=== PATIENT | female | born 1950 | race Caucasian/White ===

== ENCOUNTER 2018-12-18 06:31 | Emergency (ER) | payer MEDICARE, OTHER ==
[2018-12-18] MEDS ORDERED: Aspirin Chewable 81 MG TAB ONE (07:17)
[2018-12-18] MEDS ORDERED: Nitroglycerin 0.4 MG TAB 1 EACH ONE (07:17)
[2018-12-18] MEDS ORDERED: Heparin 25,000 units/D5W 500 ML ONE (07:22)
[2018-12-18] MEDS ORDERED: Heparin 5,000 UNITS/ML VIAL ONE (07:22)
[2018-12-18 07:36] LABS: #Lymphocytes 0.9 thou/uL (1.20-3.40); #Monocytes 0.5 thou/uL (0.11-0.59); #Neutrophils 6.8 thou/uL (1.40-6.50); %Basophils 0.6 % (0.0-1.0); %Eosinophils 0.3 % (0.0-10.0); %Lymphocytes 11.3 % (21.0-51.0); %Monocytes 5.5 % (0.0-10.0); %Neutrophils 82.4 % (42.0-75.0); Hemoglobin 16.5 g/dL (12.0-16.0); Mean Corpuscular HGB CONC 32.3 g/dL (32.0-36.0); Mean Corpuscular Hemoglobin 27.5 pg (27.0-31.0); Mean Corpuscular Volume 85.3 fL (78.0-98.0); Mean Platelet Volume 9.6 fL (7.4-10.4); Platelet Count 238 thou/uL (130-400); Red Blood Cell (RBC) Count 5.99 mill/uL (4.20-5.40); White Blood Cell (WBC) Count 8.2 thou/uL (4.8-10.8)
[2018-12-18 07:39] LABS: PTT 28.7 SEC (22.9-36.1); Prothrombin Time 13.6 SEC (12.0-14.7)
[2018-12-18 07:50] LABS: ALT (SGPT) 40 U/L (8-55); AST (SGOT) 106 U/L (5-34); Albumin 4.1 g/dL (3.4-4.8); Alkaline Phosphatase 175 U/L (40-150); Anion Gap 15 mmol/L (10-20); BUN (Urea Nitrogen) 10 mg/dL (9.8-20.1); Calc. Creatinine Clearance 0 mL/min (70-130); Calcium 9.9 mg/dL (7.8-10.44); Carbon Dioxide 21 mmol/L (23-31); Chloride 99 mmol/L (98-107); Estimated GFR-MDRD 78; Glucose 140 mg/dL (80-115); Potassium 3.4 mmol/L (3.5-5.1); Protein, Total 9.1 g/dL (6.0-8.3); Sodium 132 mmol/L (136-145)
[2018-12-18 08:12] LABS: CKMB 34.4 ng/mL (0-6.6)
--- NOTE | 2018-12-18 08:34 | RAD ---
FRONTAL VIEW CHEST: INDICATIONS: Chest pain. FINDINGS: The lungs are clear. There is no effusion or pneumothorax. A left side chest port remains in place. The chest is otherwise similar. IMPRESSION: No focal consolidation. POS: [facility]
[2018-12-18] MEDS ORDERED: Aspirin 325 MG TAB PO SCH (12:00)
[2018-12-18] MEDS ORDERED: Nitroglycerin 0.4 MG TAB 1 EACH SL PRN (12:11)
[2018-12-18] MEDS ORDERED: Heparin 25,000 units/D5W 500 ML IV SCH (12:15)
[2018-12-18] MEDS ORDERED: Heparin 10,000 UNITS/ 10 ML VIAL SLOW IVP SCH (12:15)
== END 2018-12-18 07:51 | disposition short-term general hospital (02) ==
LOC: MADERS 06:31
DX: I21.3 ST elevation (STEMI) myocardial infarction of unspecified site (principal); I10 Essential (primary) hypertension; Z79.899 Other long term (current) drug therapy
CPT/HCPCS: 36415; 71045; 80053; 82553; 84484; 85025; 85610; 85730; 93005; 96374; 96375; J1644

== ENCOUNTER 2019-03-01 12:48 | Emergency (ER) | payer MEDICARE, OTHER ==
--- NOTE | 2019-03-01 13:23 | RAD ---
EXAM: CHEST ONE VIEW HISTORY: Left-sided weakness COMPARISON: 12/18/2018 FINDINGS: The cardiac silhouette and pulmonary vasculature is within normal limits. The lungs are clear. Vascul ar calcifications are seen in thoracic aorta. Left subclavian Mediport catheter remains in place. Coronary artery stents overlie the left cardiac border. Chest is otherwise stable from prior exam. IMPRESSION: No acute cardiopulmonary process.
--- NOTE | 2019-03-01 13:38 | CT ---
EXAM: Brain CT scan Without contrast: HISTORY: Breast cancer with metastases to the brain left-sided weakness since this morning COMPARISON: Brain MRI, 02/09/2019 FINDINGS: Atrophy and chronic white matter ischemic change. Abnormal low-attenuation change in the left cerebellar hemisphere evidence for edema from metastasis. Numerous metastasis seen on the prior MRI scan are very poorly demonstrated on this study given the lack of IV contrast. No midline shift. No intra or extra-axial hemorrhage. The visualized sinuses and mastoids are clear of acute process. IMPRESSION: No evidence for midline shift or acute hemorrhage. Extensive bilateral chronic white matter ischemic changes. Abnormal low-attenuation change in the left cerebellar hemisphere evidence for edema from known metastatic focus. The numerous enhancing metastasis seen on prior MRI study not adequately demo nstrated on this noncontrast study.
[2019-03-01 14:03] LABS: #Basophils 0.1 thou/uL (0.0-0.2); #Eosinphils 0.2 thou/uL (0.0-0.7); #Lymphocytes 0.5 thou/uL (1.20-3.40); #Monocytes 0.5 thou/uL (0.11-0.59); #Neutrophils 4.3 thou/uL (1.40-6.50); %Eosinophils 2.9 % (0.0-10.0); %Lymphocytes 8.7 % (21.0-51.0); %Monocytes 8.9 % (0.0-10.0); %Neutrophils 78.5 % (42.0-75.0); Anisocytosis SLIGHT = 6-15 cells (100X) (0-5/hpf); Hemoglobin 12.6 g/dL (12.0-16.0); Large Platelets SLIGHT; MDiff Complete? YES; Mean Corpuscular HGB CONC 31.2 g/dL (32.0-36.0); Mean Corpuscular Volume 92.7 fL (78.0-98.0); Mean Platelet Volume 11.3 fL (7.4-10.4); Platelet Count 150 thou/uL (130-400); Platelet Morphology Comment Appears Adequate; RBC Distribution Width 15.8 % (11.5-14.5); Red Blood Cell (RBC) Count 4.34 mill/uL (4.20-5.40); Target Cells SLIGHT = 2-5 cells (100X) (0-1/hpf); White Blood Cell (WBC) Count 5.5 thou/uL (4.8-10.8)
[2019-03-01 14:14] LABS: ALT (SGPT) 252 U/L (8-55); AST (SGOT) 285 U/L (5-34); Albumin 3.6 g/dL (3.4-4.8); Alkaline Phosphatase 563 U/L (40-150); Anion Gap 15 mmol/L (10-20); BUN (Urea Nitrogen) 10 mg/dL (9.8-20.1); Bilirubin, Total 8.8 mg/dL (0.2-1.2); Calc. Creatinine Clearance 0 mL/min (70-130); Calcium 9.3 mg/dL (7.8-10.44); Carbon Dioxide 20 mmol/L (23-31); Chloride 106 mmol/L (98-107); Estimated GFR-MDRD 78; Globulin 4.1 g/dL (2.4-3.5); Glucose 92 mg/dL (80-115); Potassium 3.8 mmol/L (3.5-5.1); Protein, Total 7.7 g/dL (6.0-8.3); Sodium 137 mmol/L (136-145)
[2019-03-01] MEDS ORDERED: Aspirin 325 MG TAB ONE (14:41)
== END 2019-03-01 15:50 | disposition short-term general hospital (02) ==
LOC: MADERS 12:48
DX: G45.9 Transient cerebral ischemic attack, unspecified (principal)
CPT/HCPCS: 70450; 71045; 80053; 83880; 84484; 85025; 93005; 94760